=== PATIENT | male | born 1995 | race Caucasian/White ===

== ENCOUNTER 2016-10-10 15:50 | Emergency (ER) | payer MEDICAID ==
[~2016-10-10] VITALS: Ht 170.2 cm; Wt 68.0 kg
[~2016-10-10 15:50] MED LIST: AZIT-21 PO; CEFU250T PO; CEPH-38 PO; CPR500T PO; GUAI120S36 PO; NAPR-689 PO; PRD20T PO; SULF-222 PO
[2016-10-10] MEDS ORDERED: IBUPROFEN 800 MG (MOTRIN) TAB PO STA (16:40)
--- NOTE | 2016-10-10 17:15 | ED Cough/URI ---
General Chief Complaint: Cough/Cold/Flu Symptoms Stated Complaint: PAIN ALL OVER BODY Nursing Triage Note: AMBULATED TO ROOM 04 WITHOUT DIFFICULTY. STATES HE THINKS HE HAS A SINUS INFECTION. COMPLAINS OF NASAL DRAINAGE INTO THROAT, HEADACHE, BODYACHES, AND TEMP FOR TWO DAYS. IBUPROFEN TAKEN AT 0900 TODAY. Source: patient Exam Limitations: no limitations History of Present Illness Time seen by provider: 17:15 Allergies and Home Medications Allergies Uncoded Allergies: CHILDRENS TYLENOL (Allergy, Mild, 09/25/12) Home Medications No Active Prescriptions or Reported Meds Past Kdcjgsc-Tgocgl-Qlwwzv Hx Patient Social History Alcohol Use: Denies Use Recreational Drug Use: No Smoking Status: Current Everyday Smoker Recent Foreign Travel: No Contact w/Someone Who Travel: No Recent Infectious Disease Expo: No Immunizations Up To Date Tetanus Booster (TDap): Less than 5yrs Date of Influenza Vaccine: Mar 08, 2013 Seasonal Allergies Seasonal Allergies: Yes Surgeries HX Surgeries: Yes Surgeries: Appendectomy, Gallbladder, Tonsillectomy Respiratory Hx Respiratory Disorders: No Cardiovascular Hx Cardiac Disorders: No Neurological Hx Neurological Disorders: No Reproductive System Hx Reproductive Disorders: No Sexually Transmitted Disease: No HIV/AIDS: No Genitourinary Hx Genitourinary Disorders: No Gastrointestinal Hx Gastrointestinal Disorders: No Gastrointestinal Disorders: Ulcer Musculoskeletal Hx Musculoskeletal Disorders: No Endocrine Hx Endocrine Disorders: No HEENT HX ENT Disorders: No Cancer Hx Cancer: No Psychosocial Hx Psychiatric Problems: No Integumentary HX Skin/Integumentary Disorder: No Blood Transfusions Hx Blood Disorders: No Adverse Reaction to a Blood Tr: No Physical Exam Vital Signs Vital Sign - Last 12Hours 10/10/16 15:55 Temp 101.2 Pulse 90 Resp 16 B/P (MAP) 134/80 Pulse Ox 96 O2 Delivery Room Air Capillary Refill : Less Than 3 Seconds Progress/Results/Core Measures Results/Orders Lab Results Laboratory Tests Test 10/10/16 17:12 Range/Units Group A Streptococcus Screen NEGATIVE NEGATIVE My Orders Orders - ALBA MCKEON Rapid Strep A Screen (10/10/16 16:40) Ibuprofen Tablet (Motrin Tablet) (10/10/16 16:40) Vital Signs/I&O Vital Sign - Last 12Hours 10/10/16 15:55 Temp 101.2 Pulse 90 Resp 16 B/P (MAP) 134/80 Pulse Ox 96 O2 Delivery Room Air Blood Pressure Mean: 98 Departure Impression Impression: Primary Impression: Sinusitis, acute Additional Impression: Upper respiratory infection Disposition: 01 HOME, SELF-CARE Condition: Improved Departure-Patient Inst. Decision time for Depature: 17:47 Referrals: NO,LOCAL PHYSICIAN (PCP/Family) Primary Care Physician Patient Instructions: Sinusitis, Adult (DC) Add. Discharge Instructions: All discharge instructions reviewed with patient and/or family. Voiced understanding. Medications as instructed. Tylenol extra strength over-the- counter as directed for pain. Ibuprofen 800 mg by mouth every 8 hours as needed for pain. Drink plenty of fluids. Rest. Afrin nasal spray and saline nasal spray [id number] as needed for nasal congestion. Follow-up with your family practitioner if needed. Return to the emergency department for worsened symptoms or any other concerns. Scripts Cephalexin (Cephalexin) 500 Mg Capsule 500 MG PO TID, #30 CAP 0 Refills Prov: ALBA MCKEON 10/10/16 Work/School Note: Work Release Form Date Seen in the Emergency Department: Oct 10, 2016 Return to Work: Oct 11, 2016 Restrictions: Return-No Fever (24hrs) ALBA MCKEON Oct 10, 2016 17:15
[2016-10-10] MEDS ORDERED: CEPH500C PO (17:48)
[2016-10-10 17:54] VITALS: BP 122/83
== END 2016-10-10 17:54 | disposition home or self-care (01) ==
LOC: EDUNIT# 15:50 → ER 15:53
DX: J01.90 Acute sinusitis, unspecified (principal); J06.9 Acute upper respiratory infection, unspecified; F17.200 Nicotine dependence, unspecified, uncomplicated
CPT/HCPCS: 87430; 99282

== ENCOUNTER 2017-04-17 23:49 | Emergency (ER) | payer OTHER, MEDICAID ==
[~2017-04-17] VITALS: Ht 170.2 cm; Wt 68.0 kg
[~2017-04-17 23:49] MED LIST changes: +CEPH500C PO
[2017-04-18 00:12] LABS: BILIRUBIN,URINE NEGATIVE (NEGATIVE); KETONES,URINE NEGATIVE (NEGATIVE); LEUKOCYTE ESTERASE ,URINE 1+ (NEGATIVE); NITRITE,URINE NEGATIVE (NEGATIVE); PH,URINE 6.5 (5-9); PROTEIN,URINE 3+ (NEGATIVE); UROBILINOGEN,URINE NORMAL (NORMAL)
--- NOTE | 2017-04-18 00:14 | ED GU-Male ---
General Chief Complaint: -Male Stated Complaint: RT SIDE PAIN,BLOOD IN URINE Nursing Triage Note: PT TO ED 7 FOR C/O PAINFUL URINATION X3 DAYS, WORSE TODAY. Source: patient History of Present Illness Time seen by provider: 23:58 Initial Comments C/O PAIN ON URINATION X 3 DAYS C/O RIGHT FLANK PAIN X 2 DAYS TODAY HAD BLOOD IN URINE SYMPTOMS WORSE TODAY NO FEVER NO NAUSEA/VOMITING/DIARRHEA NO HISTORY OF SIMILAR PCP; NONE Allergies and Home Medications Allergies Uncoded Allergies: CHILDRENS TYLENOL (Allergy, Mild, 09/25/12) Home Medications Cephalexin 500 Mg Capsule, 500 MG PO TID, #30 Ref 0 Prescribed by: ALBA MCKEON on 10/10/161747 Ciprofloxacin HCl 500 Mg Tablet, 500 MG PO BID, #20 Prescribed by: KATIUSKA FRANK on 04/18/1757 Hydrocodone/Ibuprofen 1 Each Tablet, 1-2 EACH PO Q4H, #20 Prescribed by: KATIUSKA FRANK on 04/18/1757 Tamsulosin HCl 0.4 Mg Cap, 0.4 MG PO DAILY, #10 Prescribed by: KATIUSKA FRANK on 04/18/1757 Constitutional: no symptoms reported Respiratory: no symptoms reported Cardiovascular: no symptoms reported Gastrointestinal: see HPI, abdominal pain (RIGHT FLANK) Genitourinary: see HPI, burning, dysuria, flank pain, hematuria, pain Musculoskeletal: see HPI, back pain Skin: no symptoms reported Psychiatric/Neurological: No Symptoms Reported Endocrine: No Symptoms Reported Hematologic/Lymphatic: No Symptoms Reported Past Iddzdok-Dfnqgf-Yhmiym Hx Patient Social History Alcohol Use: Denies Use Recreational Drug Use: No Smoking Status: Current Everyday Smoker (1 PPD) Type Used: Cigarettes Recent Foreign Travel: No Contact w/Someone Who Travel: No Recent Infectious Disease Expo: No Recent Hopitalizations: No Physical Abuse: No Sexual Abuse: No Mistreated: No Fear: No Immunizations Up To Date Tetanus Booster (TDap): Less than 5yrs Date of Influenza Vaccine: Mar 08, 2013 Seasonal Allergies Seasonal Allergies: Yes Surgeries History of Surgeries: Yes Surgeries: Adenoidectomy, Appendectomy, Gallbladder, Tonsillectomy Respiratory History of Respiratory Disorde: No Cardiovascular History of Cardiac Disorders: No Neurological History of Neurological Disord: No Reproductive System Hx Reproductive Disorders: No Sexually Transmitted Disease: No HIV/AIDS: No Genitourinary History of Genitourinary Disor: No Gastrointestinal History of Gastrointestinal Di: No Musculoskeletal History of Musculoskeletal Dis: No Endocrine History of Endocrine Disorders: No HEENT History of HEENT Disorders: No Cancer History of Cancer: No Psychosocial History of Psychiatric Problem: No Suicide Risk Score: 0 Integumentary History of Skin or Integumenta: No Blood Transfusions History of Blood Disorders: No Adverse Reaction to a Blood Tr: No Family Medical History Significant Family History: No Pertinent Family Hx Physical Exam Vital Signs Vital Sign - Last 12Hours 04/17/17 23:54 Temp 96.9 Pulse 56 Resp 16 B/P (MAP) 126/85 (99) Pulse Ox 98 O2 Delivery Room Air Capillary Refill : Less Than 3 Seconds General Appearance: WD/WN, no apparent distress, other (DIRTY, MALODOROUS, DOES NOT APPEAR TO BE IN ANY DISCOMFORT WHATSOEVER. PLAYING/TEXTING ON PHONE AND LAYING OUTSTRETCHED WITH ARMS OVER HEAD AND FEET CROSSED OVER THE OTHER. WALKS UPRIGHT AND MOVES WITHOUT DIFFICULTY) Cardiovascular: regular rate, rhythm, no murmur Respiratory: normal breath sounds, no respiratory distress, no accessory muscle use Gastrointestinal: normal bowel sounds, non tender, soft, no organomegaly, no pulsatile mass Back: no vertebral tenderness, CVA tenderness (R) Extremities: normal inspection, no pedal edema, no calf tenderness, normal capillary refill Neurologic/Psychiatric: sports instructor II-XII nml as tested, no motor/sensory deficits, alert, normal mood/affect, oriented x 3 Skin: normal color, warm/dry, No rash Progress/Results/Core Measures Suspected Sepsis Recent Fever Within 48 Hours: No Infection Criteria Present: None New/Unexplained Altered Menta: No Sepsis Screen: No Definite Risk Sepsis Diagnosis: SIRS Temperature:96.9 Pulse: 56 Respiratory Rate: 16 Blood Pressure 126 /85 Mean: 99 Results/Orders Lab Results Laboratory Tests Test 04/17/17 23:59 Range/Units Urine Color YELLOW Urine Clarity SLIGHTLY CLOUDY Urine pH 6.5 5-9 Urine Specific Wiggins 1.020 1.016-1.022 Urine Protein 3+ H NEGATIVE Urine Glucose (UA) NEGATIVE NEGATIVE Urine Ketones NEGATIVE NEGATIVE Urine Nitrite NEGATIVE NEGATIVE Urine Bilirubin NEGATIVE NEGATIVE Urine Urobilinogen NORMAL NORMAL MG/DL Urine Leukocyte Esterase 1+ H NEGATIVE Urine RBC (Auto) 4+ H NEGATIVE Urine RBC 10-25 H /HPF Urine WBC RARE /HPF Urine Squamous Epithelial Cells RARE /HPF Urine Crystals PRESENT H /LPF Urine Amorphous Sediment FEW IRMA URATES H /LPF Urine Bacteria NEGATIVE /HPF Urine Casts NONE /LPF Urine Mucus SMALL H /LPF Urine Culture Indicated NO Urine Opiates Screen NEGATIVE NEGATIVE Urine Oxycodone Screen NEGATIVE NEGATIVE Urine Methadone Screen NEGATIVE NEGATIVE Urine Propoxyphene Screen NEGATIVE NEGATIVE Urine Barbiturates Screen NEGATIVE NEGATIVE Ur Tricyclic Antidepressants Screen NEGATIVE NEGATIVE Urine Phencyclidine Screen NEGATIVE NEGATIVE Urine Amphetamines Screen NEGATIVE NEGATIVE Urine Methamphetamines Screen NEGATIVE NEGATIVE Urine Benzodiazepines Screen NEGATIVE NEGATIVE Urine Cocaine Screen NEGATIVE NEGATIVE Urine Cannabinoids Screen NEGATIVE NEGATIVE My Orders Orders - KATIUSKA FRANK DO Drug Screen Stat (Urine) (04/17/17 23:58) Ua Culture If Indicated (04/17/17 23:58) Ct Abd/Pelvis Wo(Kidney Stone) (04/18/17 00:10) Abdomen/Kub 1view (04/18/17 00:10) Rx-Hydrocodone/Apap 5-325 Mg (Rx-Vicodin (04/18/17 01:00) Levofloxacin Tablet (Levaquin Tablet) (04/18/17 01:00) Alfuzosin Tablet (Uroxatral Tablet) (04/18/17 01:00) Vital Signs/I&O Vital Sign - Last 12Hours 04/17/17 23:54 Temp 96.9 Pulse 56 Resp 16 B/P (MAP) 126/85 (99) Pulse Ox 98 O2 Delivery Room Air Capillary Refill : Less Than 3 Seconds Blood Pressure Mean: 99 Progress Note : Progress Note NO COMPLAINTS DURING ER STAY Diagnostic Imaging Comments KUB--NO ACUTE PROCESS CT ABDOMEN/PELVIS--4 MM STONE IN RIGHT UVJ WITH MILD RIGHT HYDRONEPHROSIS--PER [facility] VIA FAX @ 1204 Reviewed: Reviewed by Me Departure Impression Impression: Primary Impression: Right distal ureteral calculus Additional Impression: UTI (urinary tract infection) Disposition: 01 HOME, SELF-CARE Condition: Stable Departure-Patient Inst. Referrals: NO,LOCAL PHYSICIAN (PCP) Primary Care Physician SHWETA ELIZALDE MD Patient Instructions: Kidney Stones (DC) Add. Discharge Instructions: STRAIN ALL URINE--RETURN ANY STONES TO 'S OFFICE LOTS OF CLEAR LIQUIDS FOLLOW UP WITH DR. ELIZALDE IN 1-2 DAYS FOR FURTHER CARE, RETURN TO ER IF WORSE All discharge instructions reviewed with patient and/or family. Voiced understanding. Scripts Hydrocodone/Ibuprofen (Hydrocodone-Ibuprofen 7.5-200) 1 Each Tablet 1-2 EACH PO Q4H for Pain, #20 TAB Prov: KATIUSKA FRANK DO 04/18/17 Tamsulosin HCl (Flomax) 0.4 Mg Cap 0.4 MG PO DAILY, #10 CAP Prov: KATIUSKA FRANK DO 04/18/17 Ciprofloxacin HCl (Cipro) 500 Mg Tablet 500 MG PO BID, #20 TAB Prov: KATIUSKA FRANK DO 04/18/17 KATIUSKA FRANK DO Apr 18, 2017 00:14
[2017-04-18 00:15] LABS: SQUAMOUS EPITHELIAL CELL,UR RARE /HPF; WBC,URINE RARE /HPF
[2017-04-18] MEDS ORDERED: TAMS0.4C98 PO (00:58)
[2017-04-18] MEDS ORDERED: HYDR-87 PO (00:58)
[2017-04-18] MEDS ORDERED: CIPR-225 PO (00:58)
[2017-04-18] MEDS ORDERED: LEVOFLOXACIN 500 MG TAB (LEVAQUIN) PO ONE (01:00)
[2017-04-18] MEDS ORDERED: RX-HYDROCODONE/APAP 5/325 MG #4 TAB PK PO PRN (01:00)
[2017-04-18] MEDS ORDERED: ALFUZOSIN HCL 10 MG TAB (UROXATRAL) PO ONE (01:00)
[2017-04-18 01:07] VITALS: BP 118/72
--- NOTE | 2017-04-18 06:28 | Diagnostic Imaging Report ---
PROCEDURE: CT urinary tract, rule out kidney stone. TECHNIQUE: Multiple contiguous axial images were obtained through the abdomen and pelvis without the use of intravenous contrast. INDICATION: Right flank pain and painful urination. COMPARISON: None. FINDINGS: The lung bases are clear. The liver appears unremarkable. The gallbladder is absent. The pancreas appears unremarkable. There is no biliary dilatation. The spleen and adrenal glands appear unremarkable. There is a 4 mm calculus at the right ureterovesical junction with [id number] hydroureteronephrosis on the right. The left kidney and ureter appear unremarkable. There is mild diffuse thickening of bladder wall which may be due to some inflammation or incomplete distention. There are a few prominent lymph nodes in the mesentery of the right lower quadrant, which are nonspecific. No free air or free fluid is seen. No focal inflammatory process is demonstrated. No evidence of appendicitis, although the appendix is suspected to be absent. The abdominal aorta appears normal in caliber. No acute osseous abnormality is demonstrated. IMPRESSION: 1. There is a 4 mm calculus at the right ureterovesical junction with [id number] right hydroureteronephrosis. 2. No additional significant abnormality is seen. Agree with [facility] interpretation. Dictated by: Dictated on workstation # [id number]
--- NOTE | 2017-04-18 06:42 | Diagnostic Imaging Report ---
INDICATION: Abdominal pain/right flank pain. COMPARISON: None. FINDINGS: A single frontal view of the abdomen is obtained. There is a 4 mm calcification in the right pelvis which could be within the distal right ureter. No additional urinary calcifications are suspected. The bowel gas pattern is unremarkable. There are postoperative changes of prior cholecystectomy. IMPRESSION: 4 mm calcification right pelvis could be within the distal right ureter. No additional abnormality is seen. Dictated by: Dictated on workstation # [id number]
== END 2017-04-18 01:07 | disposition home or self-care (01) ==
LOC: EDUNIT# 23:49 → ER 23:52
DX: N20.1 Calculus of ureter (principal); N39.0 Urinary tract infection, site not specified; F17.210 Nicotine dependence, cigarettes, uncomplicated; Z90.89 Acquired absence of other organs; Z90.49 Acquired absence of other specified parts of digestive tract
CPT/HCPCS: 74000; 74176; 80306; 81000; 99283

== ENCOUNTER → 2017-04-19 | Outpatient (CLI) | payer OTHER, MEDICAID ==
[~2017-04-19] MED LIST changes: +CIPR-225 PO; +HYDR-87 PO; +TAMS0.4C98 PO
--- NOTE | 2017-04-19 14:19 | Diagnostic Imaging Report ---
INDICATION: Ureteral calculus EXAMINATION: KUB at 1:03 PM There is a moderate amount of stool in the colon. There are no radiopaque calculi seen. The bowel gas pattern is normal. Gallbladder appears to be surgically absent. IMPRESSION: No acute abnormalities in the abdomen or pelvis. There are no renal or ureteral calculi seen. Dictated by: Dictated on workstation # [id number]
== END ==
LOC: RAD 12:33
PROVIDERS: ATTEND Urology
DX: N20.1 Calculus of ureter (principal)
CPT/HCPCS: 74000

== ENCOUNTER → 2017-04-21 | Outpatient (CLI) | payer OTHER, MEDICAID | LOC: PREOP 05:31 | PROVIDERS: ATTEND Urology | DX: Z01.818 Encounter for other preprocedural examination (principal); N20.1 Calculus of ureter ==

== ENCOUNTER 2017-10-23 23:48 | Emergency (ER) | payer MEDICAID, OTHER ==
[~2017-10-23] VITALS: Ht 167.6 cm; Wt 75.7 kg
--- NOTE | 2017-10-24 00:24 | ED Neurological Problem ---
General Chief Complaint: Dizziness/Syncope Stated Complaint: LIGHTED,NAUSEA,FEELS LIKE FAINTING Nursing Triage Note: PT PRESENTS TO ER WITH COMPLAINT OF LIGHT HEADED, DIZZINESS, CROOKS, AND NAUSEA FOR 1 WEEK. STATES HE SAW DR BLANTON AT [facility] AND WAS DIAGNOSED WITH AN INNER EAR IMBALANCE AND TOLD TO TAKE MECLIZINE. Nursing Sepsis Screen: No Definite Risk Source: patient, spouse Exam Limitations: no limitations History of Present Illness Date Seen by Provider: Oct 24, 2017 Time Seen by Provider: 00:04 Initial Comments Patient presents to ER by private conveyance with a chief complaint for the past week she's been having some dizziness feeling the room spins around him which results in him feeling nauseated. These episodes will come on whenever he changes positions or rolls over. He was seen at his primary care doctor's office at [facility] and he said they did a maneuver where they laid him in the bed and sat him up several times and it made his eyes twitch in he felt the room spinning. He does not recall them mentioning the word vertigo or teaching him any exercises but they did give him some meclizine which she says has not helped at all. He is not currently having any symptoms. He has had no fevers or chills although he has felt that his allergies been worse for the past couple weeks. He does not take anything for them. He does not have any allergies to any medicines. Allergies and Home Medications Allergies Uncoded Allergies: CHILDRENS TYLENOL (Allergy, Mild, 09/25/12) Home Medications Cephalexin 500 Mg Capsule, 500 MG PO TID Prescribed by: ALBA MCKEON on 10/10/161747 Ciprofloxacin HCl 500 Mg Tablet, 500 MG PO BID Prescribed by: KATIUSKA FRANK on 04/18/1757 Hydrocodone/Ibuprofen 1 Each Tablet, 1-2 EACH PO Q4H Prescribed by: KATIUSKA FRANK on 04/18/1757 Tamsulosin HCl 0.4 Mg Cap, 0.4 MG PO DAILY Prescribed by: KATIUSKA FRANK on 04/18/1757 Patient Home Medication List Home Medication List Reviewed: Yes Review of Systems Constitutional: No chills, No diaphoresis; dizziness; No fever, No malaise Eyes: Denies Blindness, Denies Blurred Vision, Denies Drainage, Denies Pain, Denies Photophobia Ears, Nose, Mouth, Throat: denies ear pain, denies ear discharge Cardiovascular: No chest pain, No edema Gastrointestinal: No abdominal pain, No constipation, No diarrhea; nausea; No vomiting Past Xgjepwv-Tjzovw-Rxyena Hx Patient Social History Alcohol Use: Denies Use Recreational Drug Use: No Smoking Status: Current Everyday Smoker Type Used: Cigarettes Recent Foreign Travel: No Contact w/Someone Who Travel: No Recent Infectious Disease Expo: No Recent Hopitalizations: No Immunizations Up To Date Tetanus Booster (TDap): Less than 5yrs PED Vaccines UTD: Yes Date of Influenza Vaccine: Mar 08, 2013 Seasonal Allergies Seasonal Allergies: Yes Past Medical History Surgeries: Yes Adenoidectomy, Appendectomy, Gallbladder, Tonsillectomy Respiratory: No Cardiac: No Neurological: No Reproductive Disorders: No Sexually Transmitted Disease: No HIV/AIDS: No Genitourinary: No Gastrointestinal: No Ulcer Musculoskeletal: No Endocrine: No HEENT: No Cancer: No Psychosocial: No Integumentary: No Blood Disorders: No Adverse Reaction/Blood Tranf: No Family Medical History No Pertinent Family Hx Physical Exam Vital Signs Vital Signs - First Documented 10/23/17 23:59 Temp 97.7 Pulse 83 Resp 20 B/P (MAP) 132/85 (101) Pulse Ox 97 O2 Delivery Room Air Capillary Refill : Less Than 3 Seconds General Appearance: WD/WN, no apparent distress HEENT: PERRL/EOMI, normal ENT inspection, pharynx normal, TM abnormal (R), TM abnormal (L) (mild clear mucoid effusion without loss of landmarks of the TM bilaterally) Neck: non-tender, full range of motion, supple, normal inspection Respiratory: chest non-tender, lungs clear, normal breath sounds, no respiratory distress, no accessory muscle use Cardiovascular: normal peripheral pulses, regular rate, rhythm, no edema, no murmur Neurologic/Psychiatric: alert, normal mood/affect, oriented x 3 Crainal Nerves: normal hearing, normal speech, PERRL Coordination/Gait: normal finger to nose, normal gait, negative Romberg's sign Motor/Sensory: no motor deficit, no sensory deficit, no pronator drift, other ( normal head impulse, nystagmus test and test of skew.) Skin: normal color, warm/dry Progress/Results/Core Measures Results/Orders Vital Signs/I&O 10/23/17 23:59 Temp 97.7 Pulse 83 Resp 20 B/P (MAP) 132/85 (101) Pulse Ox 97 O2 Delivery Room Air Blood Pressure Mean: 101 Progress Progress Note : Time: 00:22 Progress Note Appears to be a peripheral source of benign paroxysmal positional vertigo. We will go ahead and teach him some Nicole maneuvers give him a handout and instructed that if he's not having improvement in 1 week to follow up with his primary care doctor for a referral to physical therapy Departure Impression Primary Impression: Benign paroxysmal positional vertigo Qualified Codes: H81.10 - Benign paroxysmal vertigo, unspecified ear Disposition: HOME, SELF-CARE Condition: Stable Departure-Patient Inst. Decision time for Depature: 00:23 Referrals: [facility] (PCP/Family) Primary Care Physician Patient Instructions: Vertigo (a Type of Dizziness) (DC) Add. Discharge Instructions: Obtain a bottle of Flonase, fluticasone and apply 1 puff to each nostril daily for the next 2 weeks. If you have any of these dizzy spells you should perform the Nicole maneuvers per the handout 10 times. If you cannot get her symptoms under control the next week then you should follow-up with her primary care doctor and request a referral to physical therapy. All discharge instructions reviewed with patient and/or family. Voiced understanding. Copy Copies To 1: DOROTHY CONNELLY TITUS J Oct 24, 2017 00:24
[2017-10-24 00:32] VITALS: BP 132/85
== END 2017-10-24 00:32 | disposition home or self-care (01) ==
LOC: EDUNIT# 23:48 → ER 23:51
DX: H81.13 Benign paroxysmal vertigo, bilateral (principal); F17.210 Nicotine dependence, cigarettes, uncomplicated; Z87.19 Personal history of other diseases of the digestive system; Z90.89 Acquired absence of other organs; Z88.6 Allergy status to analgesic agent
CPT/HCPCS: 99283

== ENCOUNTER 2018-05-14 06:23 | Emergency (ER) | payer MEDICAID ==
[~2018-05-14] VITALS: Ht 167.6 cm; Wt 79.4 kg
--- OUTSIDE RECORDS SUMMARY | 2018-05-14 06:28 | XMS REPORT ---
Author Author SIDNEY HIGGINS Organization [facility] Address [address] [place] [address] Care Team Providers Care Business Intelligence Analyst Name Role Phone SIDNEY HIGGINS Unavailable PROBLEMS Unknown Problems ALLERGIES Substance Reaction Event Type Date Status tylenol Unknown Non Drug Allergy Oct, Active ENCOUNTERS Encounter Location Date Diagnosis [facility] [address] [address] Oct, Benign paroxysmal positional vertigo of left ear H81.12 [facility] [id number] [place] [phone] Oct, Benign paroxysmal positional vertigo, unspecified laterality H81.10 ; Dizziness R42 and Non-intractable vomiting with nausea, unspecified vomiting type R11.2 [facility] [id number] [place] [phone] September, Viral gastroenteritis A08.4 [facility] [id number] [place] [phone] Aug, IMMUNIZATIONS No Known Immunizations SOCIAL HISTORY Never Assessed REASON FOR VISIT Dizziness WB-MA, PT is still having dizzy spells the past week PLAN OF CARE Activity Details Follow Up prn Reason:vertigo VITAL SIGNS Height 66.5 in 2017-10-26 Weight 164 lbs 2017-10-26 Temperature 97.8 degrees Fahrenheit 2017-10-26 Heart Rate 70 bpm 2017-10-26 Respiratory Rate 18 2017-10-26 BMI 26.07 kg/m2 2017-10-26 Blood pressure systolic 122 mmHg 2017-10-26 Blood pressure diastolic 84 mmHg 2017-10-26 MEDICATIONS Medication Instructions Dosage Frequency Start Date End Date Duration Status Zofran 4 MG Orally 3 times a day 1 tablet 8h September, Not-Taking Meclizine HCl 25 MG Orally bid prn dizziness 1 tablet as needed 15 Oct, 2017 14 days Active Diazepam 5 mg Orally as single dose prior to repositioning maneuver 1 tablet Oct, 03 days Active RESULTS No Results PROCEDURES No Known procedures INSTRUCTIONS MEDICATIONS ADMINISTERED No Known Medications MEDICAL (GENERAL) HISTORY Type Description Date Surgical History appendix Surgical History gallbladder Surgical History calcium deposit removed from eye socket Surgical History upper GI Hospitalization History bloody nose
--- OUTSIDE RECORDS SUMMARY | 2018-05-14 06:28 | XMS REPORT ---
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 [id number] [place] [phone] September, Viral gastroenteritis A08.4 [facility] [address] [phone] Aug, IMMUNIZATIONS No Known Immunizations SOCIAL HISTORY Never Assessed REASON FOR VISIT frequent urination x1-2 weeks Seun PALOMINO , been getting shaky / really tired and at times feeling like his sugar is high/low Seun palomino , grandma's aunts on dad side but could of had and mom has symptoms Seun Palomino , consult on diabetes check Seun PALOMINO , A1C done in visit [facility] PLAN OF CARE Activity Details Follow Up prn Reason: VITAL SIGNS Height 66.5 in 2018-02-27 Weight 172.7 lbs 2018-02-27 Temperature 97.6 degrees Fahrenheit 2018-02-27 Heart Rate 84 bpm 2018-02-27 Respiratory Rate 20 2018-02-27 BMI 27.45 kg/m2 2018-02-27 Blood pressure systolic 122 mmHg 2018-02-27 Blood pressure diastolic 74 mmHg 2018-02-27 MEDICATIONS Medication Instructions Dosage Frequency Start Date End Date Duration Status Zofran 4 MG Orally 3 times a day 1 tablet 8h September, Not-Taking Diazepam 5 mg Orally as single dose prior to repositioning maneuver 1 tablet Oct, 3 days Not-Taking Meclizine HCl 25 MG Orally bid prn dizziness 1 tablet as needed Oct, 14 days Not-Taking RESULTS Name Result Date Reference Range A1C (IN HOUSE) 2018-02-27 A1C IN HOUSE 5.0 4.3 - 5.6 % Previous A1c Lot [id number] Exp date 07/2019 PROCEDURES Procedure Date Ordered Result Body Site GLYCATED HEMOGLOBIN TEST Feb 27, 2018 INSTRUCTIONS MEDICATIONS ADMINISTERED No Known Medications MEDICAL (GENERAL) HISTORY Type Description Date Surgical History appendix Surgical History gallbladder Surgical History calcium deposit removed from eye socket Surgical History upper GI Hospitalization History bloody nose
--- OUTSIDE RECORDS SUMMARY | 2018-05-14 06:29 | XMS REPORT | Continuity of Care Document ---
Author Author [facility] Organization [facility] Address Unknown Phone Unavailable Allergies Active Description Code Type Severity Reaction Onset Reported/Identified Relationship to Patient Clinical Status Yes CHILDRENS TYLENOL CHILDRENS TYLENOL Mild N/A 09/25/2012 Yes HAYFEVER HAYFEVER Mild N/A 09/25/2012 Medications There is no data. Problems Date Dx Coded Attending Type Code Diagnosis Diagnosed By 09/25/2012 KATIUSKA FRANK DO Ot 604.90 ORCHITIS/EPIDIDYMIT NOS 09/25/2012 KATIUSKA FRANK DO Ot 608.9 MALE GENITAL DIS NOS 04/02/2013 TONYA GIBBS MD Ot 490 BRONCHITIS NOS 04/02/2013 TONYA GIBBS MD Ot 786.50 CHEST PAIN NOS 11/09/2013 MAXIM MALDONADO STOCKKEEPER Ot 682.6 CELLULITIS OF LEG 04/05/2014 MAXIM MALDONADO STOCKKEEPER Ot 490 BRONCHITIS NOS 04/05/2014 MAXIM MALDONADO STOCKKEEPER Ot 786.2 COUGH 05/18/2014 LAURA GOLDEN, STEFAN Douglas Ot 726.64 PATELLAR TENDINITIS 05/18/2014 LAURA GOLDEN, STEFAN Douglas Ot 729.5 PAIN IN LIMB 02/28/2015 PRISCILLA FELICIANO DO Ot J01.90 ACUTE SINUSITIS, UNSPECIFIED 02/28/2015 PRISCILLA FELICIANO DO Ot J02.9 ACUTE PHARYNGITIS, UNSPECIFIED 10/10/2016 ALBA RAMIREZ Ot F17.200 NICOTINE DEPENDENCE, UNSPECIFIED, UNCOMP 10/10/2016 ALBA RAMIREZ Ot J01.90 ACUTE SINUSITIS, UNSPECIFIED 10/10/2016 ALBA RAMIREZ Ot J06.9 ACUTE UPPER RESPIRATORY INFECTION, UNSPE 10/10/2016 ALBA RAMIREZ Ot J34.89 OTHER SPECIFIED DISORDERS OF NOSE AND NA 04/18/2017 KATIUSKA FRANK DO Ot F17.210 NICOTINE DEPENDENCE, CIGARETTES, UNCOMPL 04/18/2017 MONIKA KATIUSKA AMAYA Ot N20.1 CALCULUS OF URETER 04/18/2017 MONIKA KATIUSKA AMAYA Ot N39.0 URINARY TRACT INFECTION, SITE NOT SPECIF 04/18/2017 KATIUSKA FRANK DO Ot R30.9 PAINFUL MICTURITION, UNSPECIFIED 04/18/2017 KATIUSKA FRANK DO Ot Z90.49 ACQUIRED ABSENCE OF OTHER SPECIFIED PART 04/18/2017 MONIKA KATIUSKA AMAYA Ot Z90.89 ACQUIRED ABSENCE OF OTHER ORGANS 04/21/2017 TONIO GOLDEN, SHWETA Avery Ot N20.1 CALCULUS OF URETER 05/03/2017 TONIO GOLDEN, SHWETA Avery Ot N20.1 CALCULUS OF URETER 05/10/2017 TONIO GOLDEN, SHWETA Avery Ot N20.1 CALCULUS OF URETER 10/23/2017 TONIO GOLDEN, SHWETA Avery Ot N20.1 CALCULUS OF URETER 10/23/2017 TONIO GOLDEN, SHWETA Avery Ot N20.1 CALCULUS OF URETER 10/23/2017 TONIO GOLDEN, SHWETA Avery Ot Z01.818 ENCOUNTER FOR OTHER PREPROCEDURAL EXAMIN 10/24/2017 SARAVANAN GOLDEN, GLORIA Grant Ot F17.210 NICOTINE DEPENDENCE, CIGARETTES, UNCOMPL 10/24/2017 GLORIA COE MD Ot H81.13 BENIGN PAROXYSMAL VERTIGO, BILATERAL 10/24/2017 GLORIA COE MD Ot R42 DIZZINESS AND GIDDINESS 10/24/2017 GLORIA COE MD Ot Z87.19 PERSONAL HISTORY OF OTHER DISEASES OF TH 10/24/2017 GLORIA COE MD Ot Z88.6 ALLERGY STATUS TO ANALGESIC AGENT STATUS 10/24/2017 GLORIA COE MD Ot Z90.89 ACQUIRED ABSENCE OF OTHER ORGANS Procedures There is no data. Results Test Result Range Streptococcus pyogenes antigen detection - 10/10/16 17:12 Streptococcus pyogenes antigen detection NEGATIVE NEGATIVE Bacterial throat culture - 10/10/16 17:12 Bacterial throat culture NBS NRG Complete urinalysis with reflex to culture - 04/17/17 23:59 Urine color determination YELLOW NRG Urine clarity determination SLIGHTLY CLOUDY NRG Urine pH measurement by test strip 6.5 5-9 Specific gravity of urine by test strip 1.020 1.016- 1.022 Urine protein assay by test strip, semi-quantitative 3+ NEGATIVE Urine glucose detection by automated test strip NEGATIVE NEGATIVE Erythrocytes detection in urine sediment by light microscopy 4+ NEGATIVE Urine ketones detection by automated test strip NEGATIVE NEGATIVE Urine nitrite detection by test strip NEGATIVE NEGATIVE Urine total bilirubin detection by test strip NEGATIVE NEGATIVE Urine urobilinogen measurement by automated test strip (mass/volume) NORMAL NORMAL Urine leukocyte esterase detection by dipstick 1+ NEGATIVE Automated urine sediment erythrocyte count by microscopy (number/high power field) [HPF] NRG Automated urine sediment leukocyte count by microscopy (number/high power field ) RARE NRG Bacteria detection in urine sediment by light microscopy NEGATIVE NRG Squamous epithelial cells detection in urine sediment by light microscopy RARE NRG Crystals detection in urine sediment by light microscopy PRESENT NRG Casts detection in urine sediment by light microscopy NONE NRG Mucus detection in urine sediment by light microscopy SMALL NRG Complete urinalysis with reflex to culture NO NRG Amorphous sediment detection in urine sediment by light microscopy FEW IRMA URATES NRG Urine drug screening test - 04/17/17 23:59 Urine phencyclidine detection by screening method NEGATIVE NEGATIVE Urine benzodiazepines detection by screening method NEGATIVE NEGATIVE Urine cocaine detection NEGATIVE NEGATIVE Urine amphetamines detection by screening method NEGATIVE NEGATIVE Urine methamphetamine detection by screening method NEGATIVE NEGATIVE Urine cannabinoids detection by screening method NEGATIVE NEGATIVE Urine opiates detection by screening method NEGATIVE NEGATIVE Urine barbiturates detection NEGATIVE NEGATIVE Screening urine tricyclic antidepressants detection NEGATIVE NEGATIVE Urine methadone detection by screening method NEGATIVE NEGATIVE Urine oxycodone detection NEGATIVE NEGATIVE Urine propoxyphene detection NEGATIVE NEGATIVE Encounters ACCT No. Visit Date/Time Discharge Status Pt. Type Provider Facility Loc./Unit Complaint [id number] 10/23/2017 23:51:00 10/24/2017 00:32:00 DIS Emergency GLORIA COE MD [facility] ER LIGHTED,NAUSEA,FEELS LIKE FAINTING [id number] 04/21/2017 05:31:00 04/21/2017 23:59:59 CLS Outpatient SHWETA ELIZALDE MD [facility] PREOP RIGHT URETERAL STONE [id number] 04/19/2017 12:33:00 04/19/2017 23:59:59 CLS Outpatient SHWETA ELIZALDE MD [facility] RAD N20.1 [id number] 04/17/2017 23:52:00 04/18/2017 01:07:00 DIS Emergency KATIUSKA FRANK DO [facility] ER RT SIDE PAIN,BLOOD IN URINE [id number] 10/10/2016 15:53:00 10/10/2016 17:54:00 DIS Emergency ALBA RAMIREZ [facility] ER PAIN ALL OVER BODY [id number] 02/28/2015 00:46:00 02/28/2015 01:50:00 DIS Emergency PRISCILLA FELICIANO DO [facility] ER SORE THROAT,RUNNY NOSE,CROOKS, MUSCLE PAIN,FEVER [id number] 05/18/2014 11:35:00 05/18/2014 17:39:00 DIS Emergency STEFAN SANCHEZ MD [facility] ER RIGHT LEG PAIN [id number] 04/05/2014 20:46:00 04/05/2014 22:38:00 DIS Emergency MAXIM MALDONADO APRN [facility] ER CHEST DISCOMFORT,HEADACHE, NAUSEA [id number] 11/09/2013 22:04:00 11/09/2013 22:52:00 DIS Emergency MAXIM MALDONADO APRN [facility] ER LEFT LEG ABSCESS [id number] 04/02/2013 21:02:00 04/02/2013 21:31:00 DIS Emergency TONYA GIBBS MD [facility] ER CHEST PAIN, SORE THROAT [id number] 09/25/2012 02:59:00 09/25/2012 04:10:00 DIS Emergency KATIUSKA FRANK DO [facility] ER LEFT TESTICLE PAIN [id number] 05/18/2014 11:35:50 ACT Document Registration
--- OUTSIDE RECORDS SUMMARY | 2018-05-14 06:29 | XMS REPORT ---
Author Author PRISCILLA LUGO Organization [facility] Address [address] [place] [address] Care Team Providers Care Split And Drum Room Supervisor Name Role Phone PRISCILLA LUGO Unavailable PROBLEMS Unknown Problems ALLERGIES Substance Reaction Event Type Date Status tylenol Unknown Non Drug Allergy September, Active ENCOUNTERS Encounter Location Date Diagnosis [place] [id number] [place] [phone] Oct, Benign paroxysmal positional vertigo of left ear H81.12 [place] [id number] [place] [phone] Oct, Benign paroxysmal positional vertigo, unspecified laterality H81.10 ; Dizziness R42 and Non-intractable vomiting with nausea, unspecified vomiting type R11.2 [facility] [address] [address] September, Viral gastroenteritis A08.4 [facility] [id number] [place] [phone] Aug, IMMUNIZATIONS No Known Immunizations SOCIAL HISTORY Never Assessed REASON FOR VISIT Vomiting Pt c/o Diarrhea since Monday and Vomiting since Monday along with Muscle aches JONATHAN Muir PLAN OF CARE VITAL SIGNS Weight 166.4 lbs 2017-09-27 Temperature 99.1 degrees Fahrenheit 2017-09-27 Heart Rate 88 bpm 2017-09-27 Respiratory Rate 20 2017-09-27 Blood pressure systolic 122 mmHg 2017-09-27 Blood pressure diastolic 64 mmHg 2017-09-27 MEDICATIONS Medication Instructions Dosage Frequency Start Date End Date Duration Status Zofran 4 MG Orally 3 times a day 1 tablet 8h September, Active RESULTS No Results PROCEDURES No Known procedures INSTRUCTIONS MEDICATIONS ADMINISTERED No Known Medications MEDICAL (GENERAL) HISTORY Type Description Date Surgical History appendix Surgical History gallbladder Surgical History calcium deposit removed from eye socket Surgical History upper GI Hospitalization History bloody nose
--- OUTSIDE RECORDS SUMMARY | 2018-05-14 06:29 | XMS REPORT ---
Author Author SIDNEY HIGGINS Organization [facility] Address [address] [place] [address] Care Team Providers Care Therapeutic Radiologist Name Role Phone SIDNEY HIGGINS Unavailable PROBLEMS Unknown Problems ALLERGIES Substance Reaction Event Type Date Status tylenol Unknown Non Drug Allergy Oct, Active ENCOUNTERS Encounter Location Date Diagnosis [facility] [address] [phone] Oct, Benign paroxysmal positional vertigo of left ear H81.12 [facility] [id number] [place] [phone] Oct, Benign paroxysmal positional vertigo, unspecified laterality H81.10 ; Dizziness R42 and Non-intractable vomiting with nausea, unspecified vomiting type R11.2 [facility] IN [facility] [id number] [place] [phone] September, Viral gastroenteritis A08.4 [facility] [id number] [place] [phone] Aug, IMMUNIZATIONS Vaccine Route Administration Date Status PHENERGAN (IM) 25 MG (25 MG/ML) IM Intramuscular October 20, 2017 Administered SOCIAL HISTORY Never Assessed REASON FOR VISIT Dizziness,light headedness, neasua and vomiting symptom for three days, -leonardo green PLAN OF CARE Activity Details Follow Up prn Reason:dizziness VITAL SIGNS Height 66.5 in 2017-10-20 Weight 167 lbs 2017-10-20 Temperature 98.4 degrees Fahrenheit 2017-10-20 Heart Rate 62 bpm 2017-10-20 Respiratory Rate 16 2017-10-20 Oximetry 97 % 2017-10-20 BMI 26.55 kg/m2 2017-10-20 Blood pressure systolic 124 mmHg 2017-10-20 Blood pressure diastolic 66 mmHg 2017-10-20 MEDICATIONS Medication Instructions Dosage Frequency Start Date End Date Duration Status Zofran 4 MG Orally 3 times a day 1 tablet 8h September, Not-Taking Meclizine HCl 25 MG Orally bid prn dizziness 1 tablet as needed Oct, 14 days Active RESULTS No Results PROCEDURES Procedure Date Ordered Result Body Site PHENERGAN (IM) 25 MG (25 MG/ML) October 20, 2017 THER/PROPH/DIAG INJ, SC/IM October 20, 2017 INSTRUCTIONS MEDICATIONS ADMINISTERED No Known Medications MEDICAL (GENERAL) HISTORY Type Description Date Surgical History appendix Surgical History gallbladder Surgical History calcium deposit removed from eye socket Surgical History upper GI Hospitalization History bloody nose
[2018-05-14] MEDS ORDERED: LACTATED RINGERS 1,000 ML IV ONE (06:38)
[2018-05-14] MEDS ORDERED: KETOROLAC 30 MG/ML VIAL IVP ONE (06:45)
[2018-05-14 06:53] LABS: BASOPHILS # (AUTO) 0.1 10^3/uL (0.0-0.1); BASOPHILS % (AUTO) 1 % (0-10); EOSINOPHILS # (AUTO) 0.2 10^3/uL (0.0-0.3); EOSINOPHILS % (AUTO) 2 % (0-10); HEMATOCRIT 47 % (40-54); HEMOGLOBIN 15.8 G/DL (13.3-17.7); LYMPHOCYTES # (AUTO) 2.7 X 10^3 (1.0-4.0); LYMPHOCYTES % (AUTO) 34 % (12-44); MEAN CORPUSCULAR HEMOGLOBIN 31 PG (25-34); MEAN CORPUSCULAR HGB CONC 34 G/DL (32-36); MEAN CORPUSCULAR VOLUME 92 FL (80-99); MEAN PLATELET VOLUME 9.8 FL (7.4-10.4); MONOCYTES # (AUTO) 0.9 X 10^3 (0.0-1.0); MONOCYTES % (AUTO) 11 % (0-12); NEUTROPHILS # (AUTO) 4.1 X 10^3 (1.8-7.8); NEUTROPHILS % (AUTO) 52 % (42-75); PLATELET COUNT 304 10^3/uL (130-400); RED CELL DISTRIBUTION WIDTH 12.8 % (10.0-14.5); WHITE BLOOD COUNT 7.8 10^3/uL (4.3-11.0)
--- NOTE | 2018-05-14 07:00 | ED Headache ---
General Chief Complaint: Head/Cervical Problems Stated Complaint: HEAD PAIN Nursing Triage Note: AMBULATORY TO ED WITH C/O HEADACHE X4-5 DAYS WHICH SOMETIMES EFFECTS HIS VISION AND MAKES HIM SENSITIVE TO LIGHT. DENIES NAUSEA, FEVER, CHILLS. HAS TRIED EXEDRIN, TYLENOL, MOTRIN WITH LITTLE HELP. Nursing Sepsis Screen: No Definite Risk Source: patient, spouse Exam Limitations: no limitations History of Present Illness Date Seen by Provider: May 14, 2018 Time Seen by Provider: 06:35 Initial Comments The patient presents to ER by private conveyance with his and chief complaint the past for 5 days been waking up in the morning with headache although sometimes he'll have headaches later in the day. He does not normally have headaches nor history of migraines. He is not having any fevers chills nausea vomiting but looks concerning is sometimes get double vision. He's had no blindness or loss of vision. No weakness confusion numbness, falls. He has no other significant medical history. Does not take any medicines routinely. He does use Excedrin and ibuprofen which sometimes works. The pain does not get worse in his head when he stands up or sits up. It is not positional. The pain starts in the right side of his parietal scalp and moves towards the midline. He is not having any pain in his eyes. Right now is not having any double vision. He does not wear contacts or glasses. No nasal congestion, rhinorrhea, sore throat, ears feeling full or under pressure. Pain is not throbbing constant right now about a 5 out of 10. He does endorse some photophobia. No phonophobia. He can take Tylenol. Allergies and Home Medications Allergies Uncoded Allergies: CHILDRENS TYLENOL (Allergy, Mild, 09/25/12) Patient Home Medication List Home Medication List Reviewed: Yes Review of Systems Review of Systems Constitutional: No chills, No fever Eyes: Denies Blindness, Denies Blurred Vision, Denies Drainage Ears, Nose, Mouth, Throat: see HPI; denies ear pain, denies ear discharge, denies nose pain, denies nose discharge, denies epistaxis, denies mouth pain ( negative for dental pain), denies loose teeth, denies throat pain, denies throat swelling Respiratory: No cough, No phlegm, No short of breath Cardiovascular: No chest pain, No edema Gastrointestinal: No abdominal pain, No nausea Genitourinary: No discharge, No dysuria Musculoskeletal: No back pain, No joint pain Psychiatric/Neurological: Headache; Denies Numbness, Denies Paresthesia; Other (occasional diplopia) Past Sxqsdtq-Eexkmq-Mndgln Hx Patient Social History Alcohol Use: Denies Use Recreational Drug Use: No Smoking Status: Current Everyday Smoker Type Used: Cigarettes (one pack per day) Recent Foreign Travel: No Contact w/Someone Who Travel: No Recent Infectious Disease Expo: No Recent Hopitalizations: No Immunizations Up To Date Tetanus Booster (TDap): Less than 5yrs PED Vaccines UTD: Yes Date of Influenza Vaccine: Mar 08, 2013 Seasonal Allergies Seasonal Allergies: Yes Past Medical History Surgeries: Yes Adenoidectomy, Appendectomy, Gallbladder, Tonsillectomy Respiratory: No Cardiac: No Neurological: No Reproductive Disorders: No Sexually Transmitted Disease: No HIV/AIDS: No Genitourinary: No Gastrointestinal: No Ulcer Musculoskeletal: No Endocrine: No HEENT: No Cancer: No Psychosocial: No Integumentary: No Blood Disorders: No Adverse Reaction/Blood Tranf: No Family Medical History No Pertinent Family Hx Physical Exam Vital Signs Vital Signs - First Documented 05/14/18 06:34 Temp 97.3 Pulse 75 Resp 17 B/P (MAP) 140/90 (107) Capillary Refill : Less Than 3 Seconds Height, Weight, BMI Height: 5'6.00" Weight: 175lbs. oz. 79.607465ui; 22.71 BMI Method:Stated General Appearance: WD/WN, no apparent distress HEENT: PERRL/EOMI, normal ENT inspection, TMs normal, pharynx normal, other ( funduscopic exam does not reveal papilledema or other concerning features) Neck: non-tender, full range of motion, supple, normal inspection Cardiovascular: normal peripheral pulses, regular rate, rhythm, no edema Respiratory: no respiratory distress, no accessory muscle use Extremities: normal inspection, no pedal edema, normal capillary refill Psychiatric: alert, oriented x 3 Crainal Nerves: normal hearing, normal speech, PERRL, other (no visual field defects.) Coordination/Gait: normal gait Motor/Sensory: no motor deficit, no sensory deficit Skin: normal color, warm/dry Progress/Results/Core Measures Results/Orders Lab Results Laboratory Tests Test 05/14/18 06:38 1/7/19 07:30 Range/Units White Blood Count 7.8 4.3-11.0 10^3/uL Red Blood Count 5.10 4.35-5.85 10^6/uL Hemoglobin 15.8 13.3-17.7 G/DL Hematocrit 47 40-54 % Mean Corpuscular Volume 92 80-99 FL Mean Corpuscular Hemoglobin 31 25-34 PG Mean Corpuscular Hemoglobin Concent 34 32-36 G/DL Red Cell Distribution Width 12.8 10.0-14.5 % Platelet Count 304 130-400 10^3/uL Mean Platelet Volume 9.8 7.4-10.4 FL Neutrophils (%) (Auto) 52 42-75 % Lymphocytes (%) (Auto) 34 12-44 % Monocytes (%) (Auto) 11 0-12 % Eosinophils (%) (Auto) 2 0-10 % Basophils (%) (Auto) 1 0-10 % Neutrophils # (Auto) 4.1 1.8-7.8 X 10^3 Lymphocytes # (Auto) 2.7 1.0-4.0 X 10^3 Monocytes # (Auto) 0.9 0.0-1.0 X 10^3 Eosinophils # (Auto) 0.2 0.0-0.3 10^3/uL Basophils # (Auto) 0.1 0.0-0.1 10^3/uL Erythrocyte Sedimentation Rate 1 0-15 MM/HR Sodium Level 139 135-145 MMOL/L Potassium Level 3.9 3.6-5.0 MMOL/L Chloride Level 107 98-107 MMOL/L Carbon Dioxide Level 23 21-32 MMOL/L Anion Gap 9 5-14 MMOL/L Blood Urea Nitrogen 10 7-18 MG/DL Creatinine 1.05 0.60-1.30 MG/DL Estimat Glomerular Filtration Rate > 60 BUN/Creatinine Ratio 10 Glucose Level 92 70-105 MG/DL Calcium Level 9.2 8.5-10.1 MG/DL Corrected Calcium 8.8 8.5-10.1 MG/DL Total Bilirubin 0.3 0.1-1.0 MG/DL Aspartate Amino Transf (AST/SGOT) 16 5-34 U/L Alanine Aminotransferase (ALT/SGPT) 16 0-55 U/L Alkaline Phosphatase 79 40-136 U/L C-Reactive Protein High Sensitivity 0.20 0.00-0.50 MG/DL Total Protein 7.3 6.4-8.2 GM/DL Albumin 4.5 3.2-4.5 GM/DL Urine Opiates Screen NEGATIVE NEGATIVE Urine Oxycodone Screen NEGATIVE NEGATIVE Urine Methadone Screen NEGATIVE NEGATIVE Urine Propoxyphene Screen NEGATIVE NEGATIVE Urine Barbiturates Screen NEGATIVE NEGATIVE Ur Tricyclic Antidepressants Screen NEGATIVE NEGATIVE Urine Phencyclidine Screen NEGATIVE NEGATIVE Urine Amphetamines Screen NEGATIVE NEGATIVE Urine Methamphetamines Screen NEGATIVE NEGATIVE Urine Benzodiazepines Screen NEGATIVE NEGATIVE Urine Cocaine Screen NEGATIVE NEGATIVE Urine Cannabinoids Screen NEGATIVE NEGATIVE My Orders Orders - GLORIA COE Cbc With Automated Diff (05/14/18 06:38) Comprehensive Metabolic Panel (05/14/18 06:38) Hs C Reactive Protein (05/14/18 06:38) Erythrocyte Sedimentation Rate (05/14/18 06:38) Drug Screen Stat (Urine) (05/14/18 06:38) Ct Head W Wo (05/14/18 06:46) Ketorolac Injection (Toradol Injection) (05/14/18 06:45) Saline Lock/Iv-Start (05/14/18 06:38) Lactated Ringers (Lr 1000 Ml Iv Solution (05/14/18 06:38) Iohexol Injection (Omnipaque 350 Mg/Ml 1 (05/14/18 07:30) Contrast Received (Contrast Received) (05/14/18 07:30) Ns (Ivpb) (Sodium Chloride 0.9% Ivpb Bag (05/14/18 07:30) Medications Given in ED Current Medications Medications Dose Ordered Sig/Alexis Route Start Time Stop Time Status Last Admin Dose Admin Iohexol 100 ml ONCE ONCE IV 05/14/18 07:30 05/14/18 07:31 DC 05/14/18 07:21 80 ML Ketorolac Tromethamine 30 mg ONCE ONCE IVP 05/14/18 06:45 05/14/18 06:47 DC 05/14/18 06:53 30 MG Lactated Ringer's 1,000 ml @ 0 mls/hr Q0M ONCE IV 05/14/18 06:38 05/14/18 06:47 DC 05/14/18 06:53 999 MLS/HR Sodium Chloride 100 ml ONCE ONCE IV 05/14/18 07:30 05/14/18 07:31 DC 05/14/18 07:21 80 ML Vital Signs/I&O 05/14/18 06:34 Temp 97.3 Pulse 75 Resp 17 B/P (MAP) 140/90 (107) Blood Pressure Mean: 107 Progress Progress Note #1: Time: 06:56 Progress Note Plan to get some labs, CT with contrast of the head and give him a liter fluids. We'll give Toradol for his pain which is 5 out of 10 now. Concerning is his diplopia. He does not have any other signs of increased intracranial pressure such as papilledema, worsening on standing etc. We'll get a urine drug screen to rule out illicit drug use. He denies any history of head trauma progression and worsening of his headaches, sudden onset, or any systemic, constitutional signs. He denies any halos around lights. We'll check a visual acuity. Headache is not positional. Low suspicion of subarachnoid hemorrhage secondary to this is been going on for days; it is not sudden severe onset, worst headache of his lifetime. This patient can be ruled out for subarachnoid hemorrhage by the [place] SAH Rule, which was 100% sensitive for SAH in its validation. Progress Note #2: Time: 07:38 Progress Note Visual acuity is 20/20 left, 20/30 right uncorrected. Diagnostic Imaging Diagonstic Imaging: CT Plain Films/CT/US/NM/MRI: head (with contrast) Comments NAME: ALYSSA RICHTER Rudy MED REC#: [id number] PT STATUS: REG ER : 1995 PHYSICIAN: GLORIA COE MD ADMIT DATE: 05/14/18/ER Draft Date of Exam:05/14/18 CT HEAD W WO PROCEDURE: CT head with and without contrast. TECHNIQUE: Multiple contiguous axial images were obtained through the brain before and after the administration of intravenous contrast. INDICATION: Headache x5 days. COMPARISON: None. FINDINGS: No intracranial hemorrhage, mass effect, hydrocephalus or extra-axial fluid collections. No CT evidence for territorial infarction. No abnormal intracranial enhancement. Osseous structures are intact. The visualized paranasal sinuses and mastoids are clear. IMPRESSION: Negative head CT. No abnormal intracranial enhancement. Dictated on workstation # [id number] Dict: 05/14/18729 Trans: 05/14/18 0733 [facility] [id number] Interpreted by: HEMANTH WARD MD Electronically signed by: Reviewed: Reviewed by Me Departure Impression Primary Impression: Headache Qualified Codes: G44.52 - New daily persistent headache (ndph) Disposition: 01 HOME, SELF-CARE Condition: Stable Departure-Patient Inst. Decision time for Depature: 07:57 Referrals: [facility] (PCP/Family) Primary Care Physician Patient Instructions: Headache, Adult (DC) Add. Discharge Instructions: Follow-up with primary care in the next week to establish a baseline for your headache and see if there is any other workup they want to do. If her headaches persist for more than a week or 2 then it may be reasonable to return to primary care and seek further evaluation/referral. Consider following up with optometry having her eyes reexamined this week or next. Tylenol 1000 mg every 8 hours as needed for headache in addition to ibuprofen 800 mg every 8 hours. Make sure you're getting plenty of sleep. All discharge instructions reviewed with patient and/or family. Voiced understanding. Work/School Note: Work Release Form Date Seen in the Emergency Department: May 14, 2018 Return to Work: May 14, 2018 Restrictions: No Restrictions GLORIA COE May 14, 2018 07:00
[2018-05-14 07:09] LABS: ALANINE AMINOTRANSFERASE 16 U/L (0-55); ALBUMIN 4.5 GM/DL (3.2-4.5); ALKALINE PHOSPHATASE 79 U/L (40-136); BILIRUBIN,TOTAL 0.3 MG/DL (0.1-1.0); BUN/CREATININE RATIO 10; CALCIUM 9.2 MG/DL (8.5-10.1); CARBON DIOXIDE 23 MMOL/L (21-32); CHLORIDE 107 MMOL/L (98-107); CREATININE SERUM 1.05 MG/DL (0.60-1.30); GFR ESTIMATED > 60; GLUCOSE 92 MG/DL (70-105); POTASSIUM 3.9 MMOL/L (3.6-5.0); SODIUM 139 MMOL/L (135-145); TOTAL PROTEIN 7.3 GM/DL (6.4-8.2)
[2018-05-14] MEDS ORDERED: RECEIVED CONTRAST (Hold Metformin) IV SCH (07:30)
[2018-05-14] MEDS ORDERED: NS 100 ML (IVPB) BAG IV ONE (07:30)
[2018-05-14] MEDS ORDERED: IOHEXOL 350 MG/ML 100 ML (OMNIPAQUE 350) VIAL IV ONE (07:30)
--- NOTE | 2018-05-14 07:33 | Diagnostic Imaging Report ---
PROCEDURE: CT head with and without contrast. TECHNIQUE: Multiple contiguous axial images were obtained through the brain before and after the administration of intravenous contrast. INDICATION: Headache x5 days. COMPARISON: None. FINDINGS: No intracranial hemorrhage, mass effect, hydrocephalus or extra-axial fluid collections. No CT evidence for territorial infarction. No abnormal intracranial enhancement. Osseous structures are intact. The visualized paranasal sinuses and mastoids are clear. IMPRESSION: Negative head CT. No abnormal intracranial enhancement. Dictated by: Dictated on workstation # [id number]
[2018-05-14 07:39] LABS: ERYTHROCYTE SEDIMENTATION RATE 1 MM/HR (0-15)
[2018-05-14 07:56] LABS: AMPHETAMINE SCREEN, URINE NEGATIVE (NEGATIVE); BARBITURATE SCREEN URINE NEGATIVE (NEGATIVE); BENZODIAZEPINES SCREEN URINE NEGATIVE (NEGATIVE); CANNABINOID SCREEN, URINE NEGATIVE (NEGATIVE); COCAINE SCREEN URINE NEGATIVE (NEGATIVE); METHADONE STAT NEGATIVE (NEGATIVE); METHAMPHETAMINE SCREEN URINE S NEGATIVE (NEGATIVE); OPIATE SCREEN URINE NEGATIVE (NEGATIVE); OXYCODONE STAT NEGATIVE (NEGATIVE); PROPOXYPHENE STAT NEGATIVE (NEGATIVE); TRICYCLIC ANTIDEPRESSANTS SCRE NEGATIVE (NEGATIVE)
[2018-05-14 08:03] VITALS: BP 130/89
== END 2018-05-14 08:05 | disposition home or self-care (01) ==
LOC: EDUNIT# 06:23 → ER 06:26
DX: R51 Headache (principal); F17.210 Nicotine dependence, cigarettes, uncomplicated; Z88.8 Allergy status to other drugs, medicaments and biological substances; Z90.89 Acquired absence of other organs; Z90.49 Acquired absence of other specified parts of digestive tract; Z87.19 Personal history of other diseases of the digestive system
CPT/HCPCS: 36415; 70470; 80053; 80306; 85025; 85652; 86141; 96361; 96374